=== PATIENT | female | born 1970 | race Caucasian/White ===

== ENCOUNTER → 2021-01-26 11:31 | Outpatient (CLI) | payer OTHER, SELFPAY ==
[2021-01-26 13:35] LABS: COVID19 -Nasal RAPID Negative (Negative)
== END ==
PROVIDERS: Visit Provider Student in an Organized Health Care Education/Training Program
DX: Z20.822 Contact with and (suspected) exposure to COVID-19 (principal)
CPT/HCPCS: 87635

== ENCOUNTER 2021-01-28 06:11 | Inpatient (IN) | payer OTHER, SELFPAY ==
[2021-01-28] VITALS (20 sets, daily range): BP systolic 98–122; BP diastolic 55–86; PULSE 79–101; RESP 10–97; TEMP 35.9–36.6; O2SAT 2–98; BMI 33.1
--- NOTE | 2021-01-28 | DI.RAD.S_ITS ---
PROCEDURE: XR LUMBAR SPINE 2-3V INDICATIONS: L4-5, L5-S1 TLIF TECHNIQUE: 2 intraoperative views of the lumbar spine were acquired. COMPARISON: [facility], RF, LUMBAR TRANSFORAMINAL CRISS, 10/14/2020, 8:25. [facility], CR, XR LUMBAR SPINE WITH OBLIQUES, 06/19/2020, 12:01. FINDINGS: Pedicle screw fixation at L4-S1 with intervertebral body spacers. IMPRESSION: Expected location of the L4-S1 fixation. Dictated by: Desmond Elena M.D. on 01/28/2021 at 12:57 Approved by: Desmond Elena M.D. on 01/28/2021 at 12:58
[2021-01-28] MEDS: LACTATED RINGERS 1,000 ML 42 ML IV ×2 (07:13→09:15)
[2021-01-28] MEDS: ACETAMINOPHEN 325 MG TABLET 975 MG PO (07:13)
--- NOTE | 2021-01-28 07:44 | PM.PREOP ---
Pre-operative Note COVID-19 COVID-19 status: Negative Result date/Date tested (Pos, Neg/Pending): 01/26/21 Interval Note History & Physical reviewed/Exam performed by Physician: Yes Changes to H&P: No
[2021-01-28] MEDS: CEFAZOLIN 2 GM/100 ML FROZ.PIGGY IV ×3 (07:55→22:11)
--- NOTE | 2021-01-28 08:01 | SUR.PREOP ---
CBCa and BMP not in chart, results obtained from CHARITO Lao, results verbally given to Dr. Basurto. No new orders.
[2021-01-28] MEDS: BUPIVACAINE LIPOSOME 266 MG/20 ML VIAL INJ (08:42)
[2021-01-28] MEDS: BUPIVACAINE 0.25% W/ EPI (PF) 10 ML VIAL 20 ML INJ (08:43)
--- NOTE | 2021-01-28 08:51 | SUR.OPER ---
Prone on spine table, head in foam head support, padded chest and pelvic supports, gel pad at knees, lower legs supported by pillows; nipples, genitalia and toes free of pressure, arms secured on foam padded arm boards at <90 degrees abduction. Tape over blanket at thigh secured to table.
--- NOTE | 2021-01-28 12:36 | PM.OP.1 ---
Operative Date/Time/Diagnoses Date of procedure: 01/28/21 Time of procedure: 08:05 Pre-op diagnosis: 1. L4-5, L5-S1 post laminectomy syndrome 2. L4-5, L5-S1 spinal stenosis with radiculopathy 3. Lumbar spondylosis in radiculopathy Post-op diagnosis: same Procedure & Clinicians Procedure: 1. L4-5, L5-S1 Postero-lateral and posterior interbody fusion 2. L4-5, L5-S1 interbody cage placement. 3. L4-5, L5-S1 decompressive laminectomy with bilateral facetecomies 4. L4-5, L5-S1 Posterior segmental instrumentation 5. [place] of bone marrow from iliac crest 6. Utilization of microsurgical technique and operating microscope Same procedure as scheduled: Yes Indications: Patient has been having chronic back pain and worsening lumbar radiculopathy. Patient had prior lumbar laminectomy at L4-5 L5-S1 level 20 years ago with significant worsening of back pain and leg pain and weakness over the last year. Patient failed multiple conservative management with worsening pain weakness and numbness in her lower extremity. Patient has been having difficulty performing activity of daily living. After discussing risks benefits of treatment options, patient elected proceed with surgery. Surgeon: Mindy Polanco Continuous Miner Operator Helper: Shilo Prajapati Click Yes if Unassisted: No Anesthesia Type: General Operative Notes Closure Type: primary Specimen(s): none sent Prosthetic devices, grafts, tissues, transplants, or devices: Globus revolve screws, Rise cages Applied: catheter Estimated Blood Loss (mL): 100 Blood products transfused: none Procedure in detail: Patient was seen in the preoperative area. Risks and benefits of the surgery was discussed with the patient. Informed consent was obtained from the patient and placed in the chart. Surgical site was marked. Patient was taken to the operative room. General anesthesia was administered. Prophylactic antibiotic was given to the patient less than 30 min before the incision was made. Patient was placed into a prone position on the Lam table. Patient's back was then prepped and draped in the sterile fashion. Time-out was performed at this time. Using AP and lateral C-arm imaging the interval between L4-S1 was identified and marked on patient's back. A 2 inch incision 2 in from midline was made on the right side first. The fascia was incised in line with skin incision. Globus MARS retractors was placed inside the incision and docked onto the L4 and L5 lamina. Using microsurgical technique and operating microscope, a L4 and L5 laminectomy and L4-5 L5-S1 facetectomy was performed using a Kerrison rongeur. During the process of decompression more than 75% of bilateral L4-5 L5-S1 facets were removed in order to decompress the spinal canal and the lateral recess. The L4-5 L5-S1 level was grossly unstable after the decompression was completed and requiring the fusion procedure. Patient was found have significant amount of epidural scarring from previous laminectomy surgery. The scar tissue was carefully dissected and excised to expose the disc space at L4-5 L5-S1 level. Patient also has significant neural foramen stenosis due to spondylosis and disc collapse at L4-5 L5-S1 level. After total facetectomy and laminectomy at L4-5 L5-S1 level the epidural space and neural foramen was fully decompressed at both levels. The disc space at L4-5, L5-S1 was identified. And a total diskectomy was performed at L4-5, L5-S1 level. The endplates were decorticated using a rasp and shaver. The total diskectomy and decortication was performed at L4-5, L5-S1 level in order to to accomplish a L4-5, L5-S1 fusion. The local bone from the laminectomy and facetectomy was saved for local bone grafting. After the total diskectomy and decortication was completed, Trifecta bone graft material was combined with local bone that was harvested earlier. At this time, a separate skin is incision was made over the iliac crest. A Jamshidi needle was inserted into the iliac crest through a separate skin incision. 5 cc of bone marrow aspiration was obtained through the separate skin incision using a Jamshidi needle from the iliac crest. The bone marrow aspiration was combined with local bone and the Trifecta bone grafting material. The bone grafting material was placed into the L4-5, L5-S1 interbody space along with two cages, one expandable cage at each level. The cages were expanded to their maximum height using the torque limiting screwdriver. At this time a mirror image incision was made on the right side. The fascia was incised in line with the skin incision. Globus MARS retractor was inserted and docked onto the L4-5, L5-S1 posterolateral gutter. Using the power drill, posterior-lateral decortication was performed at L4-5, L5-S1 level until bleeding cortical bone was identified. The remaining bone grafting material was placed into the L4-5 L5-S1 posterior lateral gutter he order to accomplish posterolateral fusion at the L4-5 L5-S1 levels. Using the double C-arm technique, pedicle screws were placed into the L4, L5, S1 pedicles bilaterally. This was done by placing the Jamshidi needle into the pedicles, then placing the guidewires over the Jamshidi needle, and finally placing the cannulated screws over the guidewires bilaterally. After the pedicle screws were placed, 2 titanium rods was locked into the heads of the pedicle screws using locking caps and torque limiting screwdriver. Total 6 pedicles screws were placed. After all the hardware was placed, and confirmed with AP and lateral C-arm imaging, the wound was then irrigated with sterile normal saline and packed with Ray-Alexandra gauze for 3 min to accomplish hemostasis. After the gauze was removed the deep fascia was closed with #1 Vicryl suture. The subcutaneous layer was closed with 2-0 Vicryl. The skin was closed with skin bal. Patient tolerated the procedure well. There were no complications. Complications: none Post-operative Condition: stable Disposition: PACU Plan for aftercare: Admit to inpatient hospital
[2021-01-28] MEDS: hydrOXYzine pamoate 25 MG CAPSULE PO (12:56)
[2021-01-28] MEDS: OXYCODONE IR 5 MG TABLET PO (12:56)
[2021-01-28] MEDS: SODIUM CHLORIDE 0.9% 1,000 ML 100 ML IV (14:21)
[2021-01-28] MEDS: HYDROMORPHONE 0.5 MG INJ IV ×3 (14:21→23:55)
[2021-01-28] MEDS: OXYCODONE IR 5 MG TABLET 10 MG PO ×3 (14:25→22:12)
--- NOTE | 2021-01-28 15:36 | PC.NURSE ---
Pt to floor from PACU at 1400; A&O X4, somnolent; desats to 88% on RA; O2 1L=98%; LS clear; IS at bedside, patient too sleepy for instruction, at this time; c/m/s to BLLES positive; PPP; island barrier drsg to lower back c/d/i; IV fluids infusing; IV pain meds and PO pain meds for severe pain to lower back
[2021-01-28] MEDS: ACETAMINOPHEN 325 MG TABLET 650 MG PO (15:45)
[2021-01-28] MEDS: DOCUSATE 100 MG CAPSULE PO (22:11)
[2021-01-28] MEDS: SENNOSIDES 8.6 MG TABLET 17.2 MG PO (22:11)
[2021-01-28] MEDS: TRAZODONE 50 MG TABLET 100 MG PO (22:11)
[2021-01-28] MEDS: PROPRANOLOL 10 MG TABLET PO (22:12)
[2021-01-28] MEDS: PANTOPRAZOLE 20 MG TABLET PO (22:18)
[2021-01-29] VITALS (9 sets, daily range): BP systolic 99–125; BP diastolic 59–78; PULSE 91–104; RESP 16–20; TEMP 36.6–37.3; O2SAT 94–98
[2021-01-29] MEDS: OXYCODONE IR 5 MG TABLET 10 MG PO ×6 (00:53→19:56)
[2021-01-29] MEDS: SODIUM CHLORIDE 0.9% 1,000 ML 100 ML IV (00:53)
[2021-01-29] MEDS: CEFAZOLIN 2 GM/100 ML FROZ.PIGGY IV (03:58)
[2021-01-29 06:11] LABS: Hematocrit 29.4 % (36-46)
[2021-01-29] MEDS: PANTOPRAZOLE 20 MG TABLET PO ×2 (06:27→21:18)
[2021-01-29] MEDS: HYDROMORPHONE 0.5 MG INJ IV ×6 (06:27→23:01)
[2021-01-29] MEDS: DOCUSATE 100 MG CAPSULE PO ×2 (08:32→21:18)
[2021-01-29] MEDS: DULOXETINE 30 MG CAPSULE 60 MG PO (08:33)
[2021-01-29] MEDS: PROPRANOLOL 10 MG TABLET PO ×2 (08:33→21:19)
[2021-01-29] MEDS: FLUoxetine 10 MG CAPSULE PO (08:33)
[2021-01-29] MEDS: ACETAMINOPHEN 325 MG TABLET 650 MG PO ×3 (08:33→22:34)
[2021-01-29] MEDS: hydrOXYzine pamoate 25 MG CAPSULE PO ×4 (08:34→22:33)
--- NOTE | 2021-01-29 09:52 | PT.IIE ---
Current Diagnoses Benign lipomatous neoplasm of other sites (01/28/21) Spinal stenosis, lumbar region without neurogenic claudication (01/28/21) Postlaminectomy syndrome, not elsewhere classified (01/28/21) Surgery Performed Operation Date: 01/28/21 07:45 Actual Procedures p L4-5,L5-S1 TLIF with posterior instrumentation - Mindy Polanco MD Medical History (Last Reviewed 01/29/21 @ 11:05 by Mahesh Pollard PA-C) Arthritis Colitis Depression Headache, classical migraine Inflammatory bowel disease Obesity Sleep apnea Physical Therapy Inpatient Evaluation/Re-Eval M1 PT/OT-IP Prior Functional Status Start: 01/29/21 12:11 Freq: NEEDED Status: Active Protocol: Document 01/29/21 12:11 CGR (Rec: 01/29/21 12:53 CGR [id number]) Medical Review Prior Functional Status Medical History Reviewed Yes Communication Pt is an effective verbal communicator Mobility and Gait Pt was IND in all mobility prior to admit. Pt was limited in distance d/t pain. Activities of Daily Living and IADL's Pt was IND in all ADLs but needed extra time to perform LB dressing. Social History Household Members family Living Arrangements House Number of Floors (Floors) Two Floors Number of Stairs To Enter/Railing? Pt has 1-2 steps to enter the home with railing on L assending then a flight of stairs with railing on R assending to get to the second floor. 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 M1 PT/OT-IP Prior Functional Status Start: 01/29/21 13:06 Freq: NEEDED Status: Active Protocol: Document 01/29/21 09:52 AB (Rec: 01/29/21 13:16 AB [id number]) Medical Review Prior Functional Status Medical History Reviewed Yes Communication able to make needs known Mobility and Gait pt stated that she is independent with ambulation without AD Activities of Daily Living and IADL's statted that her mom sometimes assist her with putting her socks/shoes on Social History Household Members family Living Arrangements House Number of Floors (Floors) Two Floors Number of Stairs To Enter/Railing? 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 M2 PT-IP Current Condition Start: 01/29/21 13:06 Freq: NEEDED Status: Active Protocol: Document 01/29/21 09:52 AB (Rec: 01/29/21 13:16 AB [email or web address]) Physical Therapy Current Condition Current Condition Evaluation Date 01/29/21 Treatment Diagnosis s/p L4-5, L5S1 fusion/lami; difficulty in walking Onset Date 01/28/21 Precautions Lumbar Precautions Log Roll,No Twisting,Limit Bending,Lifting Restriction of 10 lbs,Gait Belt above Incisional Area M3 PT-IP Subjective Start: 01/29/21 13:06 Freq: NEEDED Status: Active Protocol: Document 01/29/21 09:52 AB (Rec: 01/29/21 13:16 AB [email or web address]) Subjective Physical Therapy Visit Type Type Initial Evaluation Visit Start Time 09:52 Visit Stop Time 10:45 Total Visit Minutes 53 Number of [employer] HELPER Visits 0 Physical Therapy Visit Comments Patient Comments pt is agreeable to do PT Therapy Pain Assessment Pain When Pain Assessed At Rest Pain Present Pain Present Pain Reported Location low back Intensity 8 Scale Used Numeric (0 - 10) Pain Management Techniques Apply Cold,Distraction, Modification of Treatment,Re- positioning,Timing of Activity with Medications M4 PT-IP Mobility and Gait Start: 01/29/21 13:06 Freq: NEEDED Status: Active Protocol: Document 01/29/21 09:52 AB (Rec: 01/29/21 13:16 [email or web address]) PT-Bed Mobility Assessment Rolling Type of Rolling Log Rolling Level of Assist Minimal Assistance Supine to Sit Supine to Sit Minimal Assistance PT-Transfer Assessment Sit to and From Stand Sit to and from Stand Minimal Assistance,1 Person Assistance,Use of Upper Extremities Equipment Transfer Assistive Device Gait Belt,Front Wheeled Walker Orthotic/Prosthetic Devices or Brace: No Transfers Transfer Destination Chair Transfer Technique ambulated using FWW Transfer Ability Level of Assist Minimal Assistance,1 Person Assistance,Use of Upper Extremities Comments Mobility Comments educated pt on back precautions and log roll bed mobility. completed supine to sit min A and cues for log roll. pt seems to be anxious and requires cues with all tasks. pt was able to sit on EOB SBA. completed sit to stand min A and cues. ambulated ~ 12 ft using FWW to the chair. positioned on the chair. call light and table placed within reach. informed pt regarding equipement needs and caregiver training if needed and agreed. pt's mom came in after PT session and is agreeable to do caregiver training. Gait Assessment Gait Gait Assistance Required: Minimum Assistance Distance (Feet) 12 Able to Maintain Weight Bearing Status Yes During Gait Assistive Devices Assistive Device Gait Belt,Front Wheeled Walker Orthotic/Prosthetic Devices or Brace: No Gait Deviations General Gait Pattern Decreased Stride Length, Decreased Feet Clearance Factors Limiting Gait Function Factors Limiting Gait Function Decreased Activity Tolerance, Decreased Strength,Limited Range of Motion,Pain,Poor Balance,Poor Safety Awareness M5 PT-IP Objective Assessments Start: 01/29/21 13:06 Freq: NEEDED Status: Active Protocol: Document 01/29/21 09:52 AB (Rec: 01/29/21 13:16 AB [email or web address]) Orientation Orientation/Cognition Level of Alertness Alert Orientation Name,Place,Situation Safety Awareness Decreased Safety Awareness Gross Range of Motion Lower Extremity ROM Assessment Within Functional Limits Strength Lower Extremity Strength Assessment Within Functional Limits Muscle Tone Muscle Tone WNL Yes M6 PT-IP Treatment Start: 01/29/21 13:06 Freq: NEEDED Status: Active Protocol: Document 01/29/21 09:52 AB (Rec: 01/29/21 13:16 AB [id number]) Physical Therapy Treatment Education Education Provided Precautions,Weight Bearing Status,Post-Op Packet,Safety M7 PT-IP Assessment and Plan Start: 01/29/21 13:06 Freq: NEEDED Status: Active Protocol: Document 01/29/21 09:52 AB (Rec: 01/29/21 13:16 AB [id number]) PT Summary Assessment and Plan Potential Rehabilitation Potential Good Status of Condition at Evaluation Stable Summary Impairments Pain,ROM,Strength,Balance, Coordination,Sensation, Cognition,Bed Mobility, Transfers,Gait,Activity Tolerance Assessment Summary pt requiring min A with mobility and ambulation using FWW. pt gets anxious affecting safety awareness and needs cues with all tasks for safety at this time. pt plans to go home with family to assist her. caregiver training will bed conducted when appropriate as well as stair climbing training. will continues to assess progress. Goals Bed Mobility Goal Independent Transfer Goal Independent,Front Wheeled Walker Gait Goal Independent,Front Wheel Walker Gait Distance 150 Other Goals up/down 2 steps L rail SBA up/down 10 steps R rail SBA Days to Meet Goals 5 Frequency of Treatment Frequency Of Treatment Twice a Day Treatment Plan Physical Therapy Treatment Plan Bed Mobility Training,Transfer Training,Gait Training, Therapeutic Exercise,Balance Retraining,Post Op Education, Discharge Planning,Hot or Cold Pack,Neuromuscular Re-ed, Coordination Retraining,Manual Therapy Other Recommendations and Next Treatment ambualtion, bed mobility, Focus caregiver training, stair climbing training Precautions Lumbar Precautions Log Roll,No Twisting,Limit Bending,Lifting Restriction of 10 lbs,Gait Belt above Incisional Area Recommendations To Nursing Amount of Assist Needed 1 Person Assist Discharge Recommendations PT Discharge Recommendations Home with Assistance Transportation Needs at Discharge Private Vehicle
--- NOTE | 2021-01-29 11:03 | PM.PNPO.1 ---
Subjective Subjective Date Patient Seen: 01/29/21 Time Patient Seen: 11:03 Interval history: Pain has been severe. Denies nausea or vomiting. No fever or chills. After working with physical therapy this morning patient is really unsure whether she is stable and safe to go home. She is also very anxious about controlling her pain when she gets home. Exam Vital Signs (past 8 hours): - 01/29/21 04:00 01/29/21 07:55 01/29/21 08:39 Temperature 97.9 F Pulse Rate 104 H 93 H 99 H Respiratory Rate 20 16 16 Blood Pressure 99/59 L 123/75 Pulse Oximetry 98 95 98 01/29/21 08:50 Temperature 99.2 F Pulse Rate Respiratory Rate Blood Pressure Pulse Oximetry Oxygen Delivery Method Nasal Cannula Oxygen Flow Rate 0 Narrative Exam Narrative: Pleasant 50-year-old female resting comfortably in bedside chair in no apparent distress. Little bit of shadowing on the right lumbar dressing, clean and dry on the left. Motor functions intact distal bilateral lower extremities. Sensation grossly intact to light touch bilateral lower extremities. Both legs are warm and dry. Objective Labs Result Diagrams: 01/29/21 06:00 Labs: Laboratory Results - last 24 hr 01/29/21 06:00 Hgb 10.0 L Hct 29.4 L PFSH Medical History Arthritis Colitis Depression Headache, classical migraine Inflammatory bowel disease Obesity Sleep apnea Social History household members: family Smoking Status: Former smoker alcohol intake: never Assessment & Plan Post-op Postoperative Procedures: Procedures Operation Date: 01/28/21 07:45 Actual Procedures Side Surgeon p L4-5,L5-S1 TLIF with posterior instrumentation Mindy Polanco MD Postop day 1 lumbar fusion. Patient progressing as expected. Mobilize with physical therapy. Limit lifting, twisting, bending. Likely discharge home tomorrow. Quality VTE Deep Vein Thrombosis/Pulmonary Embolism Present on Admission: No
--- NOTE | 2021-01-29 12:03 | OT.IP.EVAL ---
Current Diagnoses Benign lipomatous neoplasm of other sites (01/28/21) Spinal stenosis, lumbar region without neurogenic claudication (01/28/21) Postlaminectomy syndrome, not elsewhere classified (01/28/21) Surgery Performed Operation Date: 01/28/21 07:45 Actual Procedures p L4-5,L5-S1 TLIF with posterior instrumentation - Mindy Polanco MD Past Medical History (Last Reviewed 01/29/21 @ 11:05 by Mahesh Pollard PA-C) Arthritis Colitis Depression Headache, classical migraine Inflammatory bowel disease Obesity Sleep apnea Occupational Therapy Inpatient Evaluation/Re-Eval M1 PT/OT-IP Prior Functional Status Start: 01/29/21 12:11 Freq: NEEDED Status: Active Protocol: Document 01/29/21 12:11 CGR (Rec: 01/29/21 12:53 CGR [id number]) Medical Review Prior Functional Status Medical History Reviewed Yes Communication Pt is an effective verbal communicator Mobility and Gait Pt was IND in all mobility prior to admit. Pt was limited in distance d/t pain. Activities of Daily Living and IADL's Pt was IND in all ADLs but needed extra time to perform LB dressing. Social History Household Members family Living Arrangements House Number of Floors (Floors) Two Floors Number of Stairs To Enter/Railing? Pt has 1-2 steps to enter the home with railing on L assending then a flight of stairs with railing on R assending to get to the second floor. 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 M2 OT-IP Current Condition Start: 01/29/21 12:11 Freq: Status: Active Protocol: Document 01/29/21 12:11 CGR (Rec: 01/29/21 12:53 CGR [id number]) Occupational Therapy Current Condition Current Condition Evaluation Date 01/29/21 Treatment Diagnosis L4-S1 Lami Diagnosis Onset Date 01/28/21 Post Operative Precautions Lumbar Precautions Log Roll,No Twisting,Limit Bending,Lifting Restriction of 10 lbs,Gait Belt above Incisional Area M3 OT- IP Subjective and Pain Start: 01/29/21 12:11 Freq: Status: Active Protocol: Document 01/29/21 12:11 CGR (Rec: 01/29/21 12:53 CGR [id number]) OT- Subjective Occupational Therapy Visit Type Type Initial Evaluation Visit Start Time 10:59 Visit Stop Time 12:03 Total Visit Minutes 64 Notes Pt's mother present throughout session. OT Pain Assessment Pain When Pain Assessed At Rest Pain Present Pain Present Pain Reported Location low back Intensity 3 Scale Used Numeric (0 - 10) Management Techniques Distraction,Modification of Treatment,Re-positioning, Timing of Activity with Medications M4 OT- IP ADL's Start: 01/29/21 12:11 Freq: Status: Active Protocol: Document 01/29/21 12:11 CGR (Rec: 01/29/21 12:53 CGR [id number]) OT IEG-Vxta-Khlazlw General Evaluation Self-Feeding Ability Independent Comments OT Self-Feeding Comments eating lunch OT ADL-Grooming General Evaluation Grooming Ability Standby Assistance Areas Needing Assistance Combing/Brushing Hair,Face Washing Comments OT Grooming Comments standing at sink OT ADL-Oral Care General Eval Oral Care Ability Standby Assistance Areas of Assistance Brushing Teeth Comments Oral Care Comments standing at sink OT ADL-Dressing General Eval Lower Body Dressing Ability Standby Assistance Areas Needing Assistance Socks Assistive Devices Dressing Assistive Devices Diplomatic Interpreter,Sock Aid Comments OT Dressing Comments Pt educated on LB dressing with DME. Hip kit provided. OT ADL-Toileting General Evaluation Toileting Ability Standby Assistance Comments OT Toileting Comments simulated seated on toielt. Pt with sary at this time. OT ADL-Bathing Comments OT Bathing Comments not performed M5 OT- IP IADL's Start: 01/29/21 12:11 Freq: Status: Active Protocol: Document 01/29/21 12:11 CGR (Rec: 01/29/21 12:53 CGR [id number]) OT-Instrumental Activities of Daily Living Deficits IADL Deficits Identified No Deficits Home Safety Awareness Awareness of Need for Assistance at Home Good Awareness Ability to Problem Solve Emergency Able to Problem Solve Situations Medication Management Medication Management No Deficits Identified Money Management Money Management No Deficits Identified Meal Preparation Meal Preparation Caregiver Provides Assist Compliance Representative Dealer Compliance Representative Dealer Caregiver Provides Assist Driving Driving Comments Pt understands that she should not drive till cleared by . M6 OT- IP Functional Cognition Start: 01/29/21 12:11 Freq: Status: Active Protocol: Document 01/29/21 12:11 CGR (Rec: 01/29/21 12:53 CGR [id number]) Cognitive Factors Limiting Selfcare Function Cognitive Ability Level of Alertness Alert Patient Orientation Name,Age,Birthday,Month,Date, Year,Day of Week,Place, Situation Attention Span Ability Capable of Focused Attention, Capable of Sustained Attention Ability to Follow Commands Able to Follow Multi-Step Commands Memory Description No Deficits Noted Safety Awareness No Deficits Noted Problem Solving Ability No deficits Noted OT- Vision and Hearing OT- Hearing Assessment OT- Hearing Assessment WFL OT- Vision Assessment Visual Acuity Glasses All The Time Visual Attentiveness WFL Occular Pursuits WFL Visual Convergence WFL M7 OT- IP Mobility and Balance Start: 01/29/21 12:11 Freq: Status: Active Protocol: Document 01/29/21 12:11 CGR (Rec: 01/29/21 12:53 CGR [id number]) OT-Transfer Assessment Sit to and From Stand Sit to and from Stand Contact Guard Assistance Transfers Transfer Ability Contact Guard Assistance Technique Transfer Destination Chair,Toilet Transfer Technique Stand Step Pivot Devices Transfer Assistive Devices Gait Belt,Front Wheeled Walker Comments Mobility Comments Pt ambulated into the bathroom , then to the sink before returning to the chair. OT- Gait Assessment Gait Gait Assistance Required: Contact Guard Assist Assistive Devices Assistive Device Gait Belt,Front Wheeled Walker Comments Gait Ability Comments mobility around the room. OT- Balance Assessment Sitting Balance and Reactions Static Sitting Balance Ability Normal Dynamic Sitting Balance Ability Good M8 OT- IP Objective Assessments Start: 01/29/21 12:11 Freq: Status: Active Protocol: Document 01/29/21 12:11 CGR (Rec: 01/29/21 12:53 CGR [id number]) OT Gross Range of Motion Upper Extremity Range of Motion Assessment Within Functional Limits OT Strength Upper Extremity Strength Assessment Within Functional Limits OT- Coordination Assessment Upper Extremity Finger to Nose Test Within Functional Limits Finger Tapping Test Within Functional Limits OT-Muscle Tone Assessment Muscle Tone WNL Yes OT Sensation Assessment Comments Summary Comments Pt states that she has some shooting pain from both shlds. Edema Edema Absent M9 OT- IP Assessment and Plan Start: 01/29/21 12:11 Freq: Status: Active Protocol: Document 01/29/21 12:11 CGR (Rec: 01/29/21 12:53 CGR [id number]) OT Summary Assessment and Plan Potential Rehabilitation Potential Excellent Analytic Complexity at Evaluation Low Summary OT Impairments Pain,Functional Mobility,Self- Feeding,Grooming,Dressing, Toileting,Bathing,Toilet Transfers,Shower Transfers, Activity Tolerance Progress Towards Goals Progressing Toward Goals Assessment Summary Pt presents as a low complexity evaluation s/p admit for L4-S1 lami and fusion. Pt is progressing well and is knowledgeable of her back precautions. Pt will benefit from 1-2 more OT sessions for bathing and dressing. Recommend d/c home with family support. Goals Grooming Goal Independent Dressing Goal Independent Toileting Goal Independent Bathing Goal Independent Toilet Transfer Goal Independent Shower Transfer Goal Independent Days to Meet Goals 2 Frequency of Treatment Frequency Of Treatment Once a Day Treatment Plan OT Treatment Plan ADL Training,Functional Mobility,Patient/Family Education,Discharge Planning Other Treatment Recommendations and Next shower and dressing. Treatment Focus Discharge Recommendations OT Discharge Recommendations Home with Assistance Home Equipment Needs tub clamp on grab bar, suction cup grab bars Transportation Needs at Discharge Private Vehicle
--- NOTE | 2021-01-29 14:00 | PT-IP ANOTE ---
Checked on pt at 1330, pt stated she wanted pain meds before tx, RN informed. Returned to pt room at 1400, pt refused again stating she still is in too much pain and RN just helped her get into comfortable position, RN informed. Will check back with pt later today or tomorrow morning.
--- NOTE | 2021-01-29 16:01 | CM.IDA ---
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 Patient cleared by therapy for DC home w/family to assist, patient's mom to complete cg training before her DC. Patient has planned for home, likely tomorrow. No needs expected from DC planning team although will remain available in case this changes before DC. BRITTA Holbrook
--- NOTE | 2021-01-29 17:15 | PC.NURSE ---
Addendum entered by Esperanza Ibrahim R.N. 01/29/21 21:03: Pt reports able to sleep, but upon wakening reports back/incisional pain 06/14. Requests iv med. Was given oxycodone and iv dilaudid as per emar. IV to left inner forearm flushes without difficulty. Assisted to turn onto left side and reposition for comfort. [place] to gravity draining without difficulty. Call light available and within pt's reach. Original Note: Pt medicated with oral analgesia by float CELIA Guevara at beginning of shift. Pt reports no relief in pain and requests staff to assist with numerous position changes in bed. Reinforced to pt precautions for back surgery TLIF and pt compliant. Pt demonstrates good understanding of these techniques. Ice to back. Dressing to back is dry and intact. IV dilaudid administered and pt c/o burning sensation with flush to left hand iv site. Site discontinued and new site established after two attempts and two RN's. Pt's mother is present in pt's room and involved in pt's care. Pt admits to full sensation to BL LE's. BL foot pumps in place. Encouraged I.S. use and this is available @ bedside.
[2021-01-29] MEDS: SODIUM CHLORIDE 0.9% FLUSH 10 ML IV ×2 (20:01→23:01)
[2021-01-29] MEDS: SENNOSIDES 8.6 MG TABLET 17.2 MG PO (21:18)
[2021-01-29] MEDS: TRAZODONE 50 MG TABLET 100 MG PO (21:21)
[2021-01-30] MEDS: OXYCODONE IR 5 MG TABLET 10 MG PO ×3 (00:15→06:12)
[2021-01-30 03:15] VITALS: BP 101/61; PULSE 88; RESP 18; TEMP 36.8; O2SAT 94
[2021-01-30] MEDS: HYDROMORPHONE 0.5 MG INJ IV ×2 (04:09→08:14)
[2021-01-30] MEDS: PANTOPRAZOLE 20 MG TABLET PO (06:12)
[2021-01-30 08:00] VITALS: BP 115/71; PULSE 95; RESP 16; TEMP 37.2; O2SAT 95
[2021-01-30] MEDS: ACETAMINOPHEN 325 MG TABLET 650 MG PO ×2 (08:11→12:56)
[2021-01-30] MEDS: DULOXETINE 30 MG CAPSULE 60 MG PO (08:11)
[2021-01-30] MEDS: hydrOXYzine pamoate 25 MG CAPSULE PO ×2 (08:11→12:56)
[2021-01-30] MEDS: FLUoxetine 10 MG CAPSULE PO (08:11)
[2021-01-30] MEDS: PROPRANOLOL 10 MG TABLET PO (08:11)
[2021-01-30] MEDS: SODIUM CHLORIDE 0.9% FLUSH 10 ML IV (08:15)
--- NOTE | 2021-01-30 09:47 | P.PN_ITS ---
Subjective Subjective Date Patient Seen: 01/30/21 Time Patient Seen: 09:47 Interval history: Pain has been slightly improved from yesterday. Denies nausea or vomiting. No fever or chills. After working with physical therapy this morning patient continnues to have significant pain. She has not yet worked with PT for staris clearance. Exam Vital Signs (past 8 hours): - 01/30/21 03:15 01/30/21 08:00 Temperature 98.3 F 99.0 F Pulse Rate 88 95 H Respiratory Rate 18 16 Blood Pressure 101/61 115/71 Pulse Oximetry 94 95 Oxygen Delivery Method Room Air Oxygen Flow Rate 0 Narrative Exam Narrative: 50-year-old female resting comfortably in bed in no apparent distress. Little bit of shadowing on the right lumbar dressing, clean and dry on the left. Motor functions intact distal bilateral lower extremities. Sensation grossly intact to light touch bilateral lower extremities. Objective Labs Result Diagrams: 01/29/21 06:00 [facility] Medical History Arthritis Colitis Depression Headache, classical migraine Inflammatory bowel disease Obesity Sleep apnea Social History household members: family Smoking Status: Former smoker alcohol intake: never Assessment & Plan Assessment & Plan narrative: Postop day 2 L4-5,L5-S1 TLIF with posterior instrumentation. Patient progressing slowly secondary to pain. Mobilize with physical therapy. Limit lifting, twisting, bending. Likely discharge this afternoon or tomorrow. Medication change to dilaudid PO from oxycodone PO. Time Spent With Patient Time with patient: 15-24 minutes Quality VTE Deep Vein Thrombosis/Pulmonary Embolism Present on Admission: No
--- NOTE | 2021-01-30 09:58 | PM.DS.1 ---
History of Present Illness History of Present Illness Chief complaint: IP Discharge Providers Provider Date of admission: 01/28/21 06:11 Discharge Date: 01/30/21 Primary care physician: JERONIMO Severino Consults: 01/28/21 14:02 Consult to Occupational Therapy Evaluate & Treat Comment: Physician Instructions: Evaluate and treat Consult to Physical Therapy Evaluate & Treat Comment: Physician Instructions: Evaluate and Treat Discharge provider: Doc Garcia MD Summary Hospital Course Discharge Diagnosis: s/p 1. L4-5, L5-S1 Postero-lateral and posterior interbody fusion 2. L4-5, L5-S1 interbody cage placement. 3. L4-5, L5-S1 decompressive laminectomy with bilateral facetecomies 4. L4-5, L5-S1 Posterior segmental instrumentation 5. [place] of bone marrow from iliac crest 6. Utilization of microsurgical technique and operating microscope Hospital Course: Patient is a 50-year-old female who is now postop day 2 from above-stated procedure. Overall she is doing okay she continues to progress with physical therapy however she continues to have some significant low back pain radiating to bilateral hips. The Dilaudid IV has been working for pain control. She was switched over from oxycodone p.o. to Dilaudid p.o. today with hopes the have better pain control. She is not yet cleared physical therapy however she work with physical therapy this afternoon hopefully to clear after working with stairs. Status at Discharge Cognitive/behavioral status at discharge: oriented Overall status at discharge: patient is progressing back to baseline Time Spent with Patient Time spent: Less than 30 minutes Exam Vital Signs (past 8 hours): - 01/30/21 03:15 01/30/21 08:00 Temperature 98.3 F 99.0 F Pulse Rate 88 95 H Respiratory Rate 18 16 Blood Pressure 101/61 115/71 Pulse Oximetry 94 95 Oxygen Delivery Method Room Air Oxygen Flow Rate 0 Narrative Exam Narrative: Motor functions intact distal bilateral lower extremities. Sensation grossly intact to light touch bilateral lower extremities. Dressings clean dry and intact. Objective Labs Result Diagrams: 01/29/21 06:00 [facility] Medical History Arthritis Colitis Depression Headache, classical migraine Inflammatory bowel disease Obesity Sleep apnea Social History household members: family Smoking Status: Former smoker alcohol intake: never Discharge Assessment & Plan Assessment and Plan Assessment: Patient is a 50-year-old female now postop day 2 from L4-S1 decompression and fusion. Overall she continues to progress with physical therapy. She has had low-grade pain control issues however I think this is improved today. Patient will with physical therapy this afternoon hopefully to clear. The patient clears this afternoon plan will be to discharge home. Discharge Plan Discharge Plan Patient Disposition: Home Discharge orders & Medications Prescriptions: New docusate sodium [DOK] 100 mg Capsule 100 mg PO BID Qty: 28 RF: 0 hydromorphone 4 mg Tablet 4 mg PO Q4HR PRN (Reason: Pain, Severe (7-10)) 21 Days Qty: 60 RF: 0 hydroxyzine pamoate 25 mg Capsule 25 mg PO Q4HR PRN (Reason: Nausea And Vomiting) Qty: 42 RF: 0 Continued trazodone 50 mg Tablet 100 mg PO BEDTIME RF: 0 fluoxetine [Prozac] 10 mg Capsule 10 mg PO DAILY RF: 0 omeprazole 20 mg Capsule,Delayed Release(Dr/Ec) 20 mg PO BID RF: 0 duloxetine [Cymbalta] 60 mg Capsule,Delayed Release(Dr/Ec) 60 mg PO DAILY RF: 0 propranolol 10 mg Tablet 10 mg PO BID RF: 0 Discontinued cyclobenzaprine 10 mg Tablet 10 mg PO TID PRN (Reason: Muscle Spasm) RF: 0 Follow up/Referrals: Chelo Boswell ARNP [Primary Care Provider] - Diet/Activity/Treatments Diet: Regular Activity: Ambulate as tolerated Skin/Wound/Dressing Care Skin care: Keep dressing clean, dry, intact Dressing: Leave dressing in place Visit Report/Discharge Packet Instructions: DI for Prescription Opioid Use Discharge Data Primary Care Provider: Chelo Boswell Quality VTE Deep Vein Thrombosis/Pulmonary Embolism Present on Admission: No
[2021-01-30] MEDS: HYDROMORPHONE 4 MG TABLET PO (10:24)
--- NOTE | 2021-01-30 11:14 | PT.IPTN ---
Current Diagnoses Benign lipomatous neoplasm of other sites (01/28/21) Spinal stenosis, lumbar region without neurogenic claudication (01/28/21) Postlaminectomy syndrome, not elsewhere classified (01/28/21) Surgery Performed Operation Date: 01/28/21 07:45 Actual Procedures p L4-5,L5-S1 TLIF with posterior instrumentation - Mindy Polanco MD Physical Therapy Treatment Note M2 PT-IP Current Condition Start: 01/29/21 13:06 Freq: NEEDED Status: Active Protocol: Document 01/29/21 09:52 AB (Rec: 01/29/21 13:16 AB [id number]) Physical Therapy Current Condition Current Condition Evaluation Date 01/29/21 Treatment Diagnosis s/p L4-5, L5S1 fusion/lami; difficulty in walking Onset Date 01/28/21 Precautions Lumbar Precautions Log Roll,No Twisting,Limit Bending,Lifting Restriction of 10 lbs,Gait Belt above Incisional Area M3 PT-IP Subjective Start: 01/29/21 13:06 Freq: NEEDED Status: Active Protocol: Document 01/30/21 10:59 AW (Rec: 01/30/21 11:13 AW [id number]) Subjective Physical Therapy Visit Type Type Treatment Note Visit Start Time 09:29 Visit Stop Time 09:45 Total Visit Minutes 16 Number of TIMBER SIZER OPERATOR Visits 0 Physical Therapy Visit Comments Patient Comments pt is agreeable to do PT Therapy Pain Assessment Pain When Pain Assessed At Rest Pain Present Pain Present Pain Reported Location low back Intensity 7 Scale Used inc to 8/10 with mobility Pain Management Techniques Distraction,Re-positioning, Timing of Activity with Medications M4 PT-IP Mobility and Gait Start: 01/29/21 13:06 Freq: NEEDED Status: Active Protocol: Document 01/30/21 10:59 AW (Rec: 01/30/21 11:13 AW [id number]) PT-Bed Mobility Assessment Rolling Type of Rolling Log Rolling Level of Assist Contact Guard Assistance Supine to Sit Supine to Sit Contact Guard Assistance Sit to Supine Sit to Supine Standby Assistance Scooting Scooting to Edge of Bed Standby Assistance PT-Transfer Assessment Sit to and From Stand Sit to and from Stand Standby Assistance,Use of Upper Extremities Equipment Transfer Assistive Device Gait Belt,Front Wheeled Walker Orthotic/Prosthetic Devices or Brace: No Transfers Transfer Destination Bed Transfer Technique ambulated using FWW Transfer Ability Level of Assist Standby Assistance,Use of Upper Extremities Comments Mobility Comments Pt recalled 3/3 precautions. She needed verbal cues and CGA for log roll and SL to sit. She stood from the bed SBA and ambulated a total of 120 feet with FWW SBA. On return to the room, she completed reverse log roll SBA. Pt was positioned with call light and all needs in reach. Gait Assessment Gait Gait Assistance Required: Standby Assistance Distance (Feet) 120 Able to Maintain Weight Bearing Status Yes During Gait Assistive Devices Assistive Device Gait Belt,Front Wheeled Walker Orthotic/Prosthetic Devices or Brace: No Gait Deviations General Gait Pattern Decreased Stride Length, Decreased Feet Clearance Factors Limiting Gait Function Factors Limiting Gait Function Decreased Activity Tolerance, Decreased Strength,Limited Range of Motion,Pain,Poor Balance Comments Gait Comments Pt used the FWW largely for balance with minimal UE weightbearing observed. M5 PT-IP Objective Assessments Start: 01/29/21 13:06 Freq: NEEDED Status: Active Protocol: Document 01/29/21 09:52 AB (Rec: 01/29/21 13:16 AB [id number]) Orientation Orientation/Cognition Level of Alertness Alert Orientation Name,Place,Situation Safety Awareness Decreased Safety Awareness Gross Range of Motion Lower Extremity ROM Assessment Within Functional Limits Strength Lower Extremity Strength Assessment Within Functional Limits Muscle Tone Muscle Tone WNL Yes M6 PT-IP Treatment Start: 01/29/21 13:06 Freq: NEEDED Status: Active Protocol: Document 01/30/21 10:59 AW (Rec: 01/30/21 11:13 AW [id number]) Physical Therapy Treatment Education Education Provided Precautions,Safety M7 PT-IP Assessment and Plan Start: 01/29/21 13:06 Freq: NEEDED Status: Active Protocol: Document 01/30/21 10:59 AW (Rec: 01/30/21 11:13 AW [id number]) PT Summary Assessment and Plan Potential Rehabilitation Potential Good Status of Condition at Evaluation Stable Summary Impairments Pain,ROM,Strength,Balance, Coordination,Sensation, Cognition,Bed Mobility, Transfers,Gait,Activity Tolerance Progress Towards Goals Progressing Toward Goals,Slow Progress due to Pain Assessment Summary Pt requiring CGA for mobility with greatly improved activity tolerance this AM. Will conduct caregiver training and stair training with pt's mother at PM session. Pt may discharge home with family to assist once medically stable. Goals Bed Mobility Goal Independent Transfer Goal Independent,Front Wheeled Walker Gait Goal Independent,Front Wheel Walker Gait Distance 150 Other Goals up/down 2 steps L rail SBA up/down 10 steps R rail SBA Days to Meet Goals 5 Frequency of Treatment Frequency Of Treatment Twice a Day Treatment Plan Physical Therapy Treatment Plan Bed Mobility Training,Transfer Training,Gait Training, Therapeutic Exercise,Balance Retraining,Post Op Education, Discharge Planning,Hot or Cold Pack,Neuromuscular Re-ed, Coordination Retraining,Manual Therapy Other Recommendations and Next Treatment ambualtion, bed mobility, Focus caregiver training, stair climbing training Precautions Lumbar Precautions Log Roll,No Twisting,Limit Bending,Lifting Restriction of 10 lbs,Gait Belt above Incisional Area Recommendations To Nursing Amount of Assist Needed Standby Assistance Discharge Recommendations PT Discharge Recommendations Home with Assistance Transportation Needs at Discharge Private Vehicle
--- NOTE | 2021-01-30 12:13 | OT.IP.TRT ---
Current Diagnoses Benign lipomatous neoplasm of other sites (01/28/21) Spinal stenosis, lumbar region without neurogenic claudication (01/28/21) Postlaminectomy syndrome, not elsewhere classified (01/28/21) Surgery Performed Operation Date: 01/28/21 07:45 Actual Procedures p L4-5,L5-S1 TLIF with posterior instrumentation - Mindy Polanco MD Occupational Therapy Treatment Note M2 OT-IP Current Condition Start: 01/29/21 12:11 Freq: Status: Active Protocol: Document 01/29/21 12:11 CGR (Rec: 01/29/21 12:53 CGR [id number]) Occupational Therapy Current Condition Current Condition Evaluation Date 01/29/21 Treatment Diagnosis L4-S1 Lami Diagnosis Onset Date 01/28/21 Post Operative Precautions Lumbar Precautions Log Roll,No Twisting,Limit Bending,Lifting Restriction of 10 lbs,Gait Belt above Incisional Area M3 OT- IP Subjective and Pain Start: 01/29/21 12:11 Freq: Status: Active Protocol: Document 01/30/21 12:31 CGR (Rec: 01/30/21 12:41 CGR [id number]) OT- Subjective Occupational Therapy Visit Type Type Progress Note Visit Start Time 11:50 Visit Stop Time 12:13 Total Visit Minutes 23 Notes Pt declined shower earlier in AM but agreeable to getting dressed for discharge home upon second attempt for therapy. OT Pain Assessment Pain When Pain Assessed At Rest Pain Present Pain Present Pain Reported Location low back Intensity 7 Scale Used Numeric (0 - 10) Management Techniques Distraction,Modification of Treatment,Re-positioning, Timing of Activity with Medications M4 OT- IP ADL's Start: 01/29/21 12:11 Freq: Status: Active Protocol: Document 01/30/21 12:31 CGR (Rec: 01/30/21 12:41 CGR [id number]) OT ROY-[id number]-Dzaouqg General Evaluation Self-Feeding Ability Independent Comments OT Self-Feeding Comments Lunch OT ADL-Grooming General Evaluation Grooming Ability Independent Areas Needing Assistance Combing/Brushing Hair Comments OT Grooming Comments seated in chair OT ADL-Oral Care Comments Oral Care Comments not performed OT ADL-Dressing General Eval Upper Body Dressing Ability Independent Lower Body Dressing Ability Minimal Assistance Areas Needing Assistance Pants/Shorts Assistive Devices Dressing Assistive Devices Steelscope Operator Comments OT Dressing Comments Pt donned pants seated in chair using the neurology teacher. Pt had difficulty with socks sticking to pants when pulling them up requiring min a. Pt then donned shirt x2 with ind. OT ADL-Toileting Comments OT Toileting Comments not performed OT ADL-Bathing Comments OT Bathing Comments Check this AM to see if pt wanted to do a shower but pt declined d/t pain. M5 OT- IP IADL's Start: 01/29/21 12:11 Freq: Status: Active Protocol: Document 01/29/21 12:11 CGR (Rec: 01/29/21 12:53 CGR [id number]) OT-Instrumental Activities of Daily Living Deficits IADL Deficits Identified No Deficits Home Safety Awareness Awareness of Need for Assistance at Home Good Awareness Ability to Problem Solve Emergency Able to Problem Solve Situations Medication Management Medication Management No Deficits Identified Money Management Money Management No Deficits Identified Meal Preparation Meal Preparation Caregiver Provides Assist Rounding And Backing Machine Operator Rounding And Backing Machine Operator Caregiver Provides Assist Driving Driving Comments Pt understands that she should not drive till cleared by MD. M6 OT- IP Functional Cognition Start: 01/29/21 12:11 Freq: Status: Active Protocol: Document 01/29/21 12:11 CGR (Rec: 01/29/21 12:53 CGR [id number]) Cognitive Factors Limiting Selfcare Function Cognitive Ability Level of Alertness Alert Patient Orientation Name,Age,Birthday,Month,Date, Year,Day of Week,Place, Situation Attention Span Ability Capable of Focused Attention, Capable of Sustained Attention Ability to Follow Commands Able to Follow Multi-Step Commands Memory Description No Deficits Noted Safety Awareness No Deficits Noted Problem Solving Ability No deficits Noted OT- Vision and Hearing OT- Hearing Assessment OT- Hearing Assessment WFL OT- Vision Assessment Visual Acuity Glasses All The Time Visual Attentiveness WFL Occular Pursuits WFL Visual Convergence WFL M7 OT- IP Mobility and Balance Start: 01/29/21 12:11 Freq: Status: Active Protocol: Document 01/30/21 12:31 CGR (Rec: 01/30/21 12:41 CGR [id number]) OT- Bed Mobility Assessment Rolling Type of Rolling Log Rolling,Roll to Left Level of Assistance Standby Assistance Supine to Sit Supine to Sit Assist Standby Assistance Scooting Scooting to Edge of Bed Standby Assistance OT-Transfer Assessment Sit to and From Stand Sit to and from Stand Standby Assistance Transfers Transfer Ability Standby Assistance Technique Transfer Destination Bed,Chair Transfer Technique Stand Step Pivot Devices Transfer Assistive Devices Gait Belt,Front Wheeled Walker Comments Mobility Comments mobility around bed to chair. OT- Balance Assessment Sitting Balance and Reactions Static Sitting Balance Ability Normal Dynamic Sitting Balance Ability Good M8 OT- IP Objective Assessments Start: 01/29/21 12:11 Freq: Status: Active Protocol: Document 01/29/21 12:11 CGR (Rec: 01/29/21 12:53 CGR [id number]) OT Gross Range of Motion Upper Extremity Range of Motion Assessment Within Functional Limits OT Strength Upper Extremity Strength Assessment Within Functional Limits OT- Coordination Assessment Upper Extremity Finger to Nose Test Within Functional Limits Finger Tapping Test Within Functional Limits OT-Muscle Tone Assessment Muscle Tone WNL Yes OT Sensation Assessment Comments Summary Comments Pt states that she has some shooting pain from both shlds. Edema Edema Absent M9 OT- IP Assessment and Plan Start: 01/29/21 12:11 Freq: Status: Active Protocol: Document 01/30/21 12:31 CGR (Rec: 01/30/21 12:41 CGR [id number]) OT Summary Assessment and Plan Potential Rehabilitation Potential Excellent Analytic Complexity at Evaluation Low Summary OT Impairments Pain,Functional Mobility,Self- Feeding,Grooming,Dressing, Toileting,Bathing,Toilet Transfers,Shower Transfers, Activity Tolerance Progress Towards Goals Progressing Toward Goals Assessment Summary Pt presents as a low complexity evaluation s/p admit for L4-S1 lami and fusion. Pt is progressing well and is knowledgeable of her back precautions. Pt will benefit from 1-2 more OT sessions for bathing and dressing. Recommend d/c home with family support. Goals Grooming Goal Independent Dressing Goal Independent Toileting Goal Independent Bathing Goal Independent Toilet Transfer Goal Independent Shower Transfer Goal Independent Days to Meet Goals 2 Frequency of Treatment Frequency Of Treatment Once a Day Treatment Plan OT Treatment Plan ADL Training,Functional Mobility,Patient/Family Education,Discharge Planning Other Treatment Recommendations and Next shower and dressing. Treatment Focus Discharge Recommendations OT Discharge Recommendations Home with Assistance Home Equipment Needs tub clamp on grab bar, suction cup grab bars Transportation Needs at Discharge Private Vehicle
--- NOTE | 2021-01-30 12:36 | PT.IPTN ---
Current Diagnoses Benign lipomatous neoplasm of other sites (01/28/21) Spinal stenosis, lumbar region without neurogenic claudication (01/28/21) Postlaminectomy syndrome, not elsewhere classified (01/28/21) Surgery Performed Operation Date: 01/28/21 07:45 Actual Procedures p L4-5,L5-S1 TLIF with posterior instrumentation - Mindy Polanco MD Physical Therapy Treatment Note M2 PT-IP Current Condition Start: 01/29/21 13:06 Freq: NEEDED Status: Active Protocol: Document 01/29/21 09:52 AB (Rec: 01/29/21 13:16 AB [id number]) Physical Therapy Current Condition Current Condition Evaluation Date 01/29/21 Treatment Diagnosis s/p L4-5, L5S1 fusion/lami; difficulty in walking Onset Date 01/28/21 Precautions Lumbar Precautions Log Roll,No Twisting,Limit Bending,Lifting Restriction of 10 lbs,Gait Belt above Incisional Area M3 PT-IP Subjective Start: 01/29/21 13:06 Freq: NEEDED Status: Active Protocol: Document 01/30/21 12:36 AW (Rec: 01/30/21 12:45 AW [id number]) Subjective Physical Therapy Visit Type Type Treatment Note Visit Start Time 12:20 Visit Stop Time 12:35 Total Visit Minutes 15 Notes Caregiver present for training . 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 Therapy Pain Assessment Pain When Pain Assessed At Rest Pain Present Pain Present Pain Reported Location low back Intensity 7 Scale Used inc to 8/10 with mobility Pain Management Techniques Distraction,Re-positioning, Timing of Activity with Medications M4 PT-IP Mobility and Gait Start: 01/29/21 13:06 Freq: NEEDED Status: Active Protocol: Document 01/30/21 12:36 AW (Rec: 01/30/21 12:45 AW [id number]) PT-Transfer Assessment Sit to and From Stand Sit to and from Stand Contact Guard Assistance,Use of Upper Extremities Equipment Transfer Assistive Device Gait Belt,Front Wheeled Walker Orthotic/Prosthetic Devices or Brace: No Transfers Transfer Destination Chair Transfer Technique ambulated using FWW Transfer Ability Level of Assist Standby Assistance,Use of Upper Extremities Comments Mobility Comments Pt was sitting up in the chair , dressed and preparing for discharge. PT educated her mother on donning the gait belt. Pt stood CGA and used the FWW to ambulate SBA in the halls. On return to the room, she transferred back to the chair SBA. Gait Assessment Gait Gait Assistance Required: Standby Assistance Distance (Feet) 120 Able to Maintain Weight Bearing Status Yes During Gait Assistive Devices Assistive Device Gait Belt,Front Wheeled Walker Orthotic/Prosthetic Devices or Brace: No Gait Deviations General Gait Pattern Decreased Stride Length, Decreased Feet Clearance Factors Limiting Gait Function Factors Limiting Gait Function Decreased Activity Tolerance, Decreased Strength,Limited Range of Motion,Pain,Poor Balance Comments Gait Comments Pt maintained good posture with the FWW, attaining hip extension with each step. Stair Climbing Assessment Evaluation Level of Assist On Stairs Standby Assistance,1 Person Assistance Devices Stair Climbing Assistive Devices Right Railing Technique/Endurance Stair Climbing Direction Ascend and Descend Stair Climbing Technique Step to Step Number of Steps Climbed 3 Stair Climbing Set # Repetitions (reps) 3 Comments Stair Climbing Comments Pt's mom was able to provide appropriate assist and cues. M5 PT-IP Objective Assessments Start: 01/29/21 13:06 Freq: NEEDED Status: Active Protocol: Document 01/29/21 09:52 AB (Rec: 01/29/21 13:16 AB [id number]) Orientation Orientation/Cognition Level of Alertness Alert Orientation Name,Place,Situation Safety Awareness Decreased Safety Awareness Gross Range of Motion Lower Extremity ROM Assessment Within Functional Limits Strength Lower Extremity Strength Assessment Within Functional Limits Muscle Tone Muscle Tone WNL Yes M6 PT-IP Treatment Start: 01/29/21 13:06 Freq: NEEDED Status: Active Protocol: Document 01/30/21 12:36 AW (Rec: 01/30/21 12:45 AW [id number]) Physical Therapy Treatment Education Education Provided Precautions,Safety Other Treatments Other Treatment Performed Pt's mom participated in CGT, able to provide good assist and cues. M7 PT-IP Assessment and Plan Start: 01/29/21 13:06 Freq: NEEDED Status: Active Protocol: Document 01/30/21 12:36 AW (Rec: 01/30/21 12:45 AW [id number]) PT Summary Assessment and Plan Potential Rehabilitation Potential Good Status of Condition at Evaluation Stable Summary Impairments Pain,ROM,Strength,Balance, Coordination,Sensation, Cognition,Bed Mobility, Transfers,Gait,Activity Tolerance Progress Towards Goals Progressing Toward Goals,Slow Progress due to Pain Assessment Summary Pt required SBA to CGA for all mobility and her mother was able to provide safe assist and cues. Pt is safe for discharge home with family assist. Goals Bed Mobility Goal Independent Transfer Goal Independent,Front Wheeled Walker Gait Goal Independent,Front Wheel Walker Gait Distance 150 Other Goals up/down 2 steps L rail SBA up/down 10 steps R rail SBA Days to Meet Goals 5 Frequency of Treatment Frequency Of Treatment Twice a Day Treatment Plan Physical Therapy Treatment Plan Bed Mobility Training,Transfer Training,Gait Training, Therapeutic Exercise,Balance Retraining,Post Op Education, Discharge Planning,Hot or Cold Pack,Neuromuscular Re-ed, Coordination Retraining,Manual Therapy Precautions Lumbar Precautions Log Roll,No Twisting,Limit Bending,Lifting Restriction of 10 lbs,Gait Belt above Incisional Area Recommendations To Nursing Amount of Assist Needed Standby Assistance Discharge Recommendations PT Discharge Recommendations Home with Assistance Transportation Needs at Discharge Private Vehicle
--- NOTE | 2021-01-30 13:54 | PC.NURSE ---
1250, patient was cleared by PT and OT for discharge to home with her family. Dressing CDI. [place] was dc'd this morning and patient reports voiding without difficulty post [place] removal. Patient's oxycodone was not giving adequate pain relief and hydromorphone po was ordered by MD and administered with good effect. Discharge instructions, home care handouts and medications reviewed with patient and her mother. IV dc'd intact. Patient has no further questions or concerns at this time, and she has her follow up scheduled. Instructed to call MD with questions or concerns, escorted out via wheelchair by DRAPERY OPERATOR with all belongings to home.
== END 2021-01-30 13:05 | disposition home or self-care (01) | DRG 455 ==
PROVIDERS: Admitting Provider Orthopaedic Surgery Orthopaedic Surgery of the Spine; PCP Nurse Practitioner Family; Referring Provider Orthopaedic Surgery Orthopaedic Surgery of the Spine; Visit Provider Orthopaedic Surgery Orthopaedic Surgery of the Spine
PROC: 0SG00AJ Fusion of Lumbar Vertebral Joint with Interbody Fusion Device, Posterior Approach, Anterior Column, Open Approach (ICD-10-PCS; principal; 2021-01-28 07:45)
DX: M48.061 Spinal stenosis, lumbar region without neurogenic claudication (principal); M96.1 Postlaminectomy syndrome, not elsewhere classified; M47.27 Other spondylosis with radiculopathy, lumbosacral region; M47.26 Other spondylosis with radiculopathy, lumbar region; M48.07 Spinal stenosis, lumbosacral region; G47.33 Obstructive sleep apnea (adult) (pediatric); E66.9 Obesity, unspecified; F32.9 Major depressive disorder, single episode, unspecified; K21.9 Gastro-esophageal reflux disease without esophagitis; Z68.33 Body mass index [BMI] 33.0-33.9, adult; G89.18 Other acute postprocedural pain
CPT/HCPCS: 36415; 72100; 76000; 85014; 85018; 97110; 97116; 97162; 97165; 97535; C1776; C9290; J0330; J0690; J1170; J2250; J2704; J3010